=== PATIENT | female | born 1965 | race American Indian/Alaskan Native ===

== ENCOUNTER 2017-01-12 17:45 | Emergency (ER) | payer BC ==
[2017-01-12 17:58] VITALS: BP 161/102
--- NOTE | 2017-01-12 20:01 | Emergency Department Report ---
ED General Adult HPI - General Chief complaint: Animal Bite Stated complaint: SPIDER BITE Time Seen by Provider: 01/12/17 19:49 Source: patient Mode of arrival: Ambulatory Limitations: No Limitations - History of Present Illness Initial comments: Patient comes into the ER today with complaints of left-sided neck pain following some sort of insect bite or sting 2 days ago. Patient never saw the insect but states that she felt something and slapped her neck. Ever since then the area has become more red and more swollen with tenderness. Patient denies any fevers, chills, vomiting, chest pain, shortness of breath. -: days(s) (2) Location: neck (left lateral) Radiation: non-radiation Quality: burning, other (stinging) Consistency: constant Improves with: none Worsens with: other (time) Associated Symptoms: denies: chest pain, cough, diaphoresis, fever/chills, headaches, loss of appetite, malaise, nausea/vomiting, seizure, shortness of breath, syncope, weakness Treatments Prior to Arrival: other (topical alcohol) - Related Data Previous Rx's Medication Instructions Recorded Last Taken Type Cephalexin [Keflex] 500 mg PO TID #30 cap 01/12/17 Unknown Rx Sulfamethoxazole/Trimethoprim 1 each PO BID #20 tablet 01/12/17 Unknown Rx [Bactrim DS TAB] traMADol [Ultram] 50 mg PO Q4HR PRN #30 tablet 01/12/17 Unknown Rx Allergies Allergy/AdvReac Type Severity Reaction Status Date / Time codeine AdvReac SYNCOPE Verified 01/12/17 17:53 ED Review of Systems ROS: Stated complaint: SPIDER BITE Other details as noted in HPI Constitutional: denies: chills, fever Eyes: denies: eye pain, eye discharge, vision change ENT: denies: ear pain, throat pain Respiratory: denies: cough, shortness of breath, wheezing Cardiovascular: denies: chest pain, palpitations Endocrine: no symptoms reported Gastrointestinal: denies: abdominal pain, nausea, diarrhea Genitourinary: denies: urgency, dysuria, discharge Musculoskeletal: denies: back pain, joint swelling, arthralgia Skin: denies: rash, lesions Neurological: denies: headache, weakness, paresthesias Psychiatric: denies: anxiety, depression Hematological/Lymphatic: denies: easy bleeding, easy bruising ED Past Medical Hx - Past Medical History Additional medical history: ALLERGIES. OBESITY - Surgical History Additional Surgical History: RIGHT KNEE SURGERY. . HYSTERECTOMY - Social History Smoking Status: Never Smoker Substance Use Type: None - Medications Home Medications: Home Medications Medication Instructions Recorded Confirmed Last Taken Type Cephalexin [Keflex] 500 mg PO TID #30 cap 01/12/17 Unknown Rx Sulfamethoxazole/Trimethoprim 1 each PO BID #20 tablet 01/12/17 Unknown Rx [Bactrim DS TAB] traMADol [Ultram] 50 mg PO Q4HR PRN #30 tablet 01/12/17 Unknown Rx ED Physical Exam - General Limitations: No Limitations General appearance: alert, in no apparent distress - Head Head exam: Present: atraumatic, normocephalic - Eye Eye exam: Present: normal appearance - ENT ENT exam: Present: mucous membranes moist - Neck Neck exam: Present: normal inspection, tenderness (left lateral tenderness at this noted around pustular red nonindurated lesion consistent with insect bite) , full ROM, lymphadenopathy (left posterior auricular lymph node swelling) - Respiratory Respiratory exam: Present: normal lung sounds bilaterally. Absent: respiratory distress - Cardiovascular Cardiovascular Exam: Present: regular rate, normal rhythm. Absent: systolic murmur, diastolic murmur, rubs, gallop - GI/Abdominal GI/Abdominal exam: Present: soft, normal bowel sounds - Extremities Exam Extremities exam: Present: normal inspection - Back Exam Back exam: Present: normal inspection - Neurological Exam Neurological exam: Present: alert, oriented X3 - Psychiatric Psychiatric exam: Present: normal affect, normal mood - Skin Skin exam: Present: warm, dry, intact, normal color. Absent: rash ED Course Vital Signs 01/12/17 17:55 Temperature 98.5 F Pulse Rate 91 H Respiratory 17 Rate Blood Pressure 161/102 O2 Sat by Pulse 98 Oximetry ED Medical Decision Making - Medical Decision Making Patient is nontoxic and hemodynamically stable. I informed patient that the lesion does not appear to need incision and drainage at this time. It does appear to be getting infected. I have some concern as to potential reaction versus infectious process going on. I will start patient on some antibiotics as well as short course of steroids. Patient is stable for discharge and is agreement with treatment plan. Critical care attestation.: If time is entered above; I have spent that time in minutes in the direct care of this critically ill patient, excluding procedure time. ED Disposition Clinical Impression: Insect bite Disposition: DISCHARGED TO HOME OR SELFCARE Is pt being admited?: No Does the pt Need Aspirin: No Condition: Good Instructions: Insect Bite or Sting (ED) Prescriptions: Cephalexin [Keflex] 500 mg PO TID #30 cap Sulfamethoxazole/Trimethoprim [Bactrim DS TAB] 1 each PO BID #20 tablet traMADol [Ultram] 50 mg PO Q4HR PRN #30 tablet PRN Reason: Pain Referrals: PRIMARY CARE, [Primary Care Provider] - 3-5 Days Time of Disposition: 20:06
== END 2017-01-12 20:11 | disposition home or self-care (01) ==
LOC: ED 17:45
DX: S10.96XA Insect bite of unspecified part of neck, initial encounter (principal); W57.XXXA Bitten or stung by nonvenomous insect and other nonvenomous arthropods, initial encounter; Y93.9 Activity, unspecified; Y92.9 Unspecified place or not applicable; Y99.9 Unspecified external cause status
CPT/HCPCS: 99282

== ENCOUNTER 2017-04-02 12:49 | Emergency (ER) | payer BC ==
[2017-04-02 13:01] VITALS: BP 148/109
[2017-04-02] MEDS ORDERED: TRIDIL DRIP 50MG/250ML 0 MG/0 ML BOTTLE ONE (13:16)
--- NOTE | 2017-04-02 13:22 | Emergency Department Report ---
ED Neck Pain/Injury HPI - General Chief Complaint: Pain General Stated Complaint: PAIN ON RT SIDE OF BODY Time Seen by Provider: 04/02/17 13:11 Mode of arrival: Ambulatory Limitations: No Limitations - History of Present Illness MD Complaint: neck pain - Related Data Previous Rx's Medication Instructions Recorded Last Taken Type Cephalexin [Keflex] 500 mg PO TID #30 cap 01/12/17 Unknown Rx Sulfamethoxazole/Trimethoprim 1 each PO BID #20 tablet 01/12/17 Unknown Rx [Bactrim DS TAB] traMADol [Ultram] 50 mg PO Q4HR PRN #30 tablet 01/12/17 Unknown Rx Allergies Allergy/AdvReac Type Severity Reaction Status Date / Time codeine AdvReac SYNCOPE Verified 01/12/17 17:53 ED Review of Systems ROS: Stated complaint: PAIN ON RT SIDE OF BODY Other details as noted in HPI ED Past Medical Hx - Past Medical History Previous Medical History?: Yes Additional medical history: ALLERGIES. OBESITY - Surgical History Past Surgical History?: Yes Additional Surgical History: RIGHT KNEE SURGERY. . HYSTERECTOMY - Social History Smoking Status: Never Smoker Substance Use Type: Non Opiate Pain - Medications Home Medications: Home Medications Medication Instructions Recorded Confirmed Last Taken Type Cephalexin [Keflex] 500 mg PO TID #30 cap 01/12/17 Unknown Rx Sulfamethoxazole/Trimethoprim 1 each PO BID #20 tablet 01/12/17 Unknown Rx [Bactrim DS TAB] traMADol [Ultram] 50 mg PO Q4HR PRN #30 tablet 01/12/17 Unknown Rx ED Physical Exam - General Limitations: No Limitations ED Course Vital Signs 04/02/17 12:58 Temperature 98.8 F Pulse Rate 85 Respiratory 20 Rate Blood Pressure 148/109 O2 Sat by Pulse 96 Oximetry Critical care attestation.: If time is entered above; I have spent that time in minutes in the direct care of this critically ill patient, excluding procedure time. ED Disposition Condition: Stable
[2017-04-02] MEDS ORDERED: TYLENOL PO ONE (14:00)
[2017-04-02 14:02] LABS: Eosinophils % (Auto) 2.3 % (0.0-4.3); Hematocrit 40.2 % (30.3-42.9); Hemoglobin 13.3 gm/dl (10.1-14.3); Mean Corpuscular HGB Conc 33 % (30-34); Mean Corpuscular Hemoglobin 30 pg (28-32); Mean Corpuscular Volume 90 fl (79-97); Platelet Count 232 K/mm3 (140-440); Red Blood Count 4.45 M/mm3 (3.65-5.03); Red Cell Distribution Width 14.4 % (13.2-15.2); White Blood Count 8.5 K/mm3 (4.5-11.0)
[2017-04-02 14:21] LABS: Anion Gap 13 mmol/L; BUN/Creatinine Ratio 13.75; Blood Urea Nitrogen 11 mg/dL (7-17); Calcium 8.1 mg/dL (8.4-10.2); Carbon Dioxide 26 mmol/L (22-30); Chloride 106.5 mmol/L (98-107); Creatine Kinase 97 units/L (30-135); Glucose 106 mg/dL (65-100); Potassium 3.8 mmol/L (3.6-5.0); Sodium 142 mmol/L (137-145)
[2017-04-02] MEDS ORDERED: TORADOL IM ONE (14:55)
--- NOTE | 2017-04-02 15:04 | Cat Scan Report ---
FINAL REPORT EXAM: CT HEAD/BRAIN WO CON HISTORY: RUE paraesthesias TECHNIQUE: Noncontrast CT axial images of the brain. PRIORS: None. FINDINGS: No parenchymal mass, mass effect, hemorrhage, midline shift or hydrocephalus. No evidence of acute cortical infarct. No abnormal, extra-axial fluid or air collection. Osseous calvarium grossly intact. IMPRESSION: 1. No acute intracranial findings.
--- NOTE | 2017-04-02 15:26 | Cat Scan Report ---
FINAL REPORT EXAM: CT CERVICAL SPINE WO CONTRAST HISTORY: neck pain rad sravani right arm TECHNIQUE: Spiral CT scanning of the cervical spine, with axial images and multiplanar reformations. PRIORS: None. FINDINGS: Patient body habitus limits examination somewhat. Mild dextroconvex curvature of cervical spine. Variable neural foraminal encroachment particularly along the right side and most pronounced in the C4-5 and C6-7 levels, may be due in part to congenitally shortened pedicular distance. No acute compression deformity or gross malalignment of cervical vertebral bodies. No acute fracture identified. No significant, osseous central spinal canal encroachment. Disc spaces maintained. Paraspinal soft tissues grossly unremarkable. IMPRESSION: 1. Variable neural foraminal encroachment, right greater than left, may be congenital or anatomic. Please note that MRI is a far more sensitive modality in the evaluation of degenerative disc disease and followup may be warranted. 2. No other acute findings.
--- NOTE | 2017-04-04 11:07 | Vascular Lab Report ---
LOWER EXTREMITY VENOUS DUPLEX: REASON FOR EXAM: Swelling of the lower extremities. COMMENTS ON THE RIGHT: All veins visualized are freely compressible without evidence of internal echogenicity. Flow is spontaneous and phasic throughout. COMMENTS ON THE LEFT: All veins visualized are freely compressible without evidence of internal echogenicity. Flow is spontaneous and phasic throughout. IMPRESSION: No evidence of acute or chronic deep venous thrombosis in either lower extremity.
== END 2017-04-02 16:15 | disposition home or self-care (01) ==
LOC: ED 12:49
DX: M79.1 Myalgia (principal); M54.2 Cervicalgia; M79.89 Other specified soft tissue disorders
CPT/HCPCS: 36415; 70450; 70490; 80048; 82550; 85025; 93970; 96372; 99284; J1885

== ENCOUNTER 2020-07-04 19:17 | Emergency (ER) | payer SELFPAY ==
[2020-07-04 20:04] LABS: Basophils # (Auto) 0.1 K/mm3 (0.0-0.1); Basophils % (Auto) 0.8 % (0.0-1.8); Eosinophils # (Auto) 0.2 K/mm3 (0.0-0.4); Eosinophils % (Auto) 2.4 % (0.0-4.3); Hematocrit 40.7 % (30.3-42.9); Hemoglobin 13.6 gm/dl (10.1-14.3); Lymphocytes # (Auto) 2.7 K/mm3 (1.2-5.4); Lymphocytes % (Auto) 28.3 % (13.4-35.0); Mean Corpuscular HGB Conc 34 % (30-34); Mean Corpuscular Volume 91 fl (79-97); Monocytes # (Auto) 0.8 K/mm3 (0.0-0.8); Platelet Count 271 K/mm3 (140-440); Red Blood Count 4.45 M/mm3 (3.65-5.03); Red Cell Distribution Width 14.8 % (13.2-15.2)
[2020-07-04 20:25] LABS: BUN/Creatinine Ratio 7; Blood Urea Nitrogen 7 mg/dL (7-17); Calcium 8.6 mg/dL (8.4-10.2); Hemolysis Index 9
--- NOTE | 2020-07-04 22:34 | Emergency Department Report ---
HPI - General Chief Complaint: Extremity Injury, Lower Time Seen by Provider: 07/04/20 22:21 - HPI HPI: This is a 55-year-old female presents to the emergency department with complaint of a 2-day history of bilateral lower extremity pain and swelling. The pain is mostly from the back of the knee down through her calf and the swelling goes down through the feet. She denies any skin color change, rash, lesions, itching, bleeding, weeping, drainage. She denies any fever, chest pain, shortness of breath, back pain. She denies any past medical history. She has a primary care physician, but cannot currently remember the name. She tried some ibuprofen for her symptoms without any relief. She denies any recent travel, immobility, recent surgery. 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 ED Past Medical Hx - Past Medical History Previous Medical History?: Yes Additional medical history: ALLERGIES. OBESITY - Surgical History Past Surgical History?: Yes Additional Surgical History: RIGHT KNEE SURGERY. . HYSTERECTOMY - Social History Smoking Status: Never Smoker Substance Use Type: None - Medications Home Medications: Home Medications Medication Instructions Recorded Confirmed Last Taken Type Sulfamethoxazole/Trimethoprim 1 each PO BID #20 tablet 01/12/17 Unknown Rx [Bactrim DS TAB] cephALEXin [Keflex] 500 mg PO TID #30 cap 01/12/17 Unknown Rx traMADoL [Ultram] 50 mg PO Q4HR PRN #30 tablet 01/12/17 Unknown Rx Cyclobenzaprine [Flexeril] 10 mg PO TID PRN #15 tablet 04/02/17 Unknown Rx Naproxen [Naprosyn TAB] 500 mg PO BID PRN #30 tablet 04/02/17 Unknown Rx ED Review of Systems ROS: Stated complaint: swollen legs Other details as noted in HPI Comment: All other systems reviewed and negative Constitutional: denies: chills, fever Eyes: denies: eye pain, vision change ENT: denies: ear pain, throat pain Respiratory: denies: cough, shortness of breath Cardiovascular: edema (b/l legs). denies: chest pain, palpitations Gastrointestinal: denies: abdominal pain, vomiting Genitourinary: denies: dysuria, discharge Musculoskeletal: myalgia. denies: back pain Skin: denies: rash, lesions Neurological: denies: numbness, paresthesias Physical Exam - Physical Exam Vital Signs: Vital Signs 07/04/20 19:29 Temperature 99.5 F Pulse Rate 78 Respiratory 20 Rate Blood Pressure 151/95 O2 Sat by Pulse 98 Oximetry Physical Exam: GENERAL: The patient is well-developed well-nourished. HENT: Normocephalic. Atraumatic. Patient has moist mucous membranes. EYES: Extraocular motions are intact. NECK: Supple. Trachea is midline. CHEST/LUNGS: Clear to auscultation. There is no respiratory distress noted. HEART/CARDIOVASCULAR: Regular. There is no tachycardia. ABDOMEN: Abdomen is soft, nontender. Patient has normal bowel sounds. Morbidly obese habitus. SKIN: 1-2+ pitting edema to the bilateral lower extremities from the knees distally to the ankles. No erythema. No bleeding, weeping, drainage. No rash or lesions. NEURO: The patient is awake, alert, and oriented. The patient is cooperative. The patient has no focal neurologic deficits. Normal speech. MUSCULOSKELETAL: There is some tenderness to palpation to the bilateral lower extremities from the knees distally. There is no limitation range of motion. Palpable distal pulses. Capillary refill less than 2 seconds. ED Course Vital Signs 07/04/20 19:29 Temperature 99.5 F Pulse Rate 78 Respiratory 20 Rate Blood Pressure 151/95 O2 Sat by Pulse 98 Oximetry - Reevaluation(s) Reevaluation #1: 07/05/20 01:09 Lab Results 07/04/20 07/04/20 07/04/20 Range/Units 19:40 19:40 19:40 WBC 9.4 (4.5-11.0) K/mm3 RBC 4.45 (3.65-5.03) M/mm3 Hgb 13.6 (10.1-14.3) gm/dl Hct 40.7 (30.3-42.9) % MCV 91 (79-97) fl MCH 31 (28-32) pg MCHC 34 (30-34) % RDW 14.8 (13.2-15.2) % Plt Count 271 (140-440) K/mm3 Lymph % (Auto) 28.3 (13.4-35.0) % [place] % (Auto) 9.0 H (0.0-7.3) % Eos % (Auto) 2.4 (0.0-4.3) % Baso % (Auto) 0.8 (0.0-1.8) % Lymph # (Auto) 2.7 (1.2-5.4) K/mm3 [place] # (Auto) 0.8 (0.0-0.8) K/mm3 Eos # (Auto) 0.2 (0.0-0.4) K/mm3 Baso # (Auto) 0.1 (0.0-0.1) K/mm3 Seg Neutrophils % 59.5 (40.0-70.0) % Seg Neutrophils # 5.6 (1.8-7.7) K/mm3 Sodium 143 (137-145) mmol/L Potassium 3.6 (3.6-5.0) mmol/L Chloride 109.7 H (98-107) mmol/L Carbon Dioxide 24 (22-30) mmol/L Anion Gap 13 mmol/L BUN 7 (7-17) mg/dL Creatinine 1.0 (0.6-1.2) mg/dL Estimated GFR > 60 ml/min BUN/Creatinine Ratio 7 % Glucose 111 H (65-100) mg/dL Calcium 8.6 (8.4-10.2) mg/dL NT-Pro-B Natriuret Pep 29.82 (0-900) pg/mL Reevaluation #2: 07/05/20 01:09 Vital Signs 07/04/20 19:29 Temperature 99.5 F Pulse Rate 78 Respiratory 20 Rate Blood Pressure 151/95 O2 Sat by Pulse 98 Oximetry ED Medical Decision Making - Lab Data Result diagrams: 07/04/20 19:40 07/04/20 19:40 - Radiology Data Radiology results: report reviewed DUPLEX DOPPLER LOWER EXTREMITY VEINS, BILATERAL INDICATION: Bilateral lower extremity swelling and pain. TECHNIQUE: Duplex doppler imaging was performed through the veins of both lower extremities using venous compression and other maneuvers. COMPARISON: None available. FINDINGS: Right Common Femoral vein: Negative. Right Superficial Femoral vein: Negative. Right Popliteal vein: Negative. Right Calf veins: Negative. Left Common Femoral vein: Negative. Left Superficial Femoral vein: Negative. Left Popliteal vein: Negative. Left Calf veins: Negative. Additional findings: Soft tissue edema is noted throughout the lower extremities bilaterally. IMPRESSION: 1. No sonographic evidence for DVT in either lower extremity. - Medical Decision Making This patient presents with a 2-day history of bilateral lower extremity pain and swelling. No chest pain or shortness of breath. On examination she does have reproducible tenderness to palpation from the knees distally. She also has 1-2+ pitting edema to the bilateral tib-fib and nonpitting edema to the feet. Bilateral lower extremity venous Doppler ultrasound was completed and did not show any sonographic evidence for DVT. Patient's labs were unremarkable including CBC, metabolic panel and proBNP. The patient does not have any erythema concerning for cellulitis. There is no fluctuance concerning for abscess. There is no other rash or lesions seen. She has full range of motion. She has neurovascularly intact. I planned to give the patient a dose of Lasix to start some diuresis, but the patient did not want this medication/treatment. She will use compression stockings/socks and will keep her legs elevated when she is resting at home. She has been instructed to follow-up with primary care and return to the ER with any worsening of her symptoms or with any acute distress. Vital signs have been reassuring throughout her ED course including being afebrile. Critical Care Time: No Critical care attestation.: If time is entered above; I have spent that time in minutes in the direct care of this critically ill patient, excluding procedure time. ED Disposition Clinical Impression: Bilateral lower extremity edema, Bilateral lower extremity pain Disposition: - TO HOME OR SELFCARE Is pt being admited?: No Condition: Stable Instructions: Peripheral Edema Additional Instructions: Please follow-up with your primary care physician in the next few days. When you are at home resting, keep your legs elevated. You can try compression stockings/socks. Return to the emergency department with any worsening of your symptoms, new or concerning symptoms not addressed during this current emergency department visit, or with any acute distress. Referrals: PRIMARY CARE [Primary Care Provider] - 2-3 Days Time of Disposition: 00:27
--- NOTE | 2020-07-04 23:51 | Vascular Lab Report ---
DUPLEX DOPPLER LOWER EXTREMITY VEINS, BILATERAL INDICATION: Bilateral lower extremity swelling and pain. TECHNIQUE: Duplex doppler imaging was performed through the veins of both lower extremities using venous salina rodo and other maneuvers. COMPARISON: None available. FINDINGS: Right Common Femoral vein: Negative. Right Superficial Femoral vein: Negative. Right Popliteal vein: Negative. Right Calf veins: Negative. Left Common Femoral vein: Negative. Left Superficial Femoral vein: Negative. Left Popliteal vein: Negative. Left Calf veins: Negative. Additional findings: Soft tissue edema is noted throughout the lower extremities bilaterally. IMPRESSION: 1. No sonographic evidence for DVT in either lower extremity. Signer Name: Sharon Escobedo MD Signed: 07/04/2020 11:47 PM Workstation Name: [id number]
[2020-07-05] MEDS ORDERED: FUROSEMIDE 20 MG TAB PO ONE
[2020-07-05 01:27] VITALS: BP 150/92
== END 2020-07-05 00:37 | disposition home or self-care (01) ==
LOC: ED 19:17
DX: M79.604 Pain in right leg (principal); M79.605 Pain in left leg; R60.0 Localized edema; E66.9 Obesity, unspecified; Z68.44 Body mass index [BMI] 60.0-69.9, adult; Z90.710 Acquired absence of both cervix and uterus; Z79.899 Other long term (current) drug therapy; Z88.6 Allergy status to analgesic agent
CPT/HCPCS: 36415; 80048; 83880; 85025; 93970

== ENCOUNTER 2020-11-19 17:02 | Emergency (ER) | payer OTHER ==
[2020-11-19 17:41] VITALS: BP 138/105
--- NOTE | 2020-11-19 17:46 | Emergency Department Report ---
Upper Extremity - HPI Chief Complaint: Extremity Injury, Upper Stated Complaint: RT ARM PAIN Upper Extremity: Right Arm, Right Forearm Occurred When: 3 Days Mechanism: Unsure Severity: severe Symptoms: Yes Pain with Movement, No Deformity, No Limited Range of Movement, No Numbness, No Swelling, No Bruising/Ecchymosis, No Laceration or Abrasion Other History: 55-year-old morbid obese -[place] female presents to the emergency room for right forearm and arm pain x3 days. Patient unsure of any injury. 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 She currently does not have a primary care provider. She reports she is taking Tylenol [id number] for pain management. She reports that has not helped. She denies any trauma. Denies anything making the pain worse or better. Denies any limitations. ED Review of Systems ROS: Stated complaint: RT ARM PAIN Other details as noted in HPI Comment: All other systems reviewed and negative ED Past Medical Hx - Past Medical History Additional medical history: ALLERGIES. OBESITY - Surgical History Additional Surgical History: RIGHT KNEE SURGERY. . HYSTERECTOMY - Social History Smoking Status: Never Smoker Substance Use Type: None - Medications Home Medications: Home Medications Medication Instructions Recorded Confirmed Last Taken Type Sulfamethoxazole/Trimethoprim 1 each PO BID #20 tablet 01/12/17 Unknown Rx [Bactrim DS TAB] cephALEXin [Keflex] 500 mg PO TID #30 cap 01/12/17 Unknown Rx traMADoL [Ultram] 50 mg PO Q4HR PRN #30 tablet 01/12/17 Unknown Rx Cyclobenzaprine [Flexeril] 10 mg PO TID PRN #15 tablet 04/02/17 Unknown Rx Naproxen [Naprosyn TAB] 500 mg PO BID PRN #30 tablet 04/02/17 Unknown Rx Diclofenac Sodium [Voltaren 50 gm TP BID #50 gel..gram. 11/19/20 Unknown Rx Arthritis Pain] Naproxen [Naprosyn] 500 mg PO BID PRN #20 tablet 11/19/20 Unknown Rx Upper Extremity Exam - Exam General: Vital signs noted. No distress. Alert and acting appropriately. Shoulder Exam: Yes Normal Range of Motion in Shoulder, No Shoulder Tenderness, No Clavicle Tenderness, No Shoulder Deformity, No AC Joint Tenderness Elbow: Yes Normal Range of Motion in Elbow, No Elbow Tenderness, No Elbow Deformity Forearm: Yes Forearm Tenderness, No Forearm Deformity, No Pain with Pronation, No Pain with Supination Wrist: Yes Normal ROM in Wrist, No Wrist Tenderness, No Wrist Deformity, No Snuffbox Tenderness, No Pain with Axial Thumb Compression Hand: Yes Normal ROM in Digit(s), No Hand Tenderness, No Hand Deformity, No Digit Tenderness, No Digit(s) Deformity, No Tendon Dysfunction ED Course Vital Signs 11/19/20 17:29 Temperature 98.3 F Pulse Rate 79 Respiratory 18 Rate Blood Pressure 138/105 O2 Sat by Pulse 100 Oximetry ED Medical Decision Making - Medical Decision Making 55-year-old morbid obese -[place] female presents to the emergency room for right forearm and arm pain x3 days. Patient unsure of any injury. 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 She currently does not have a primary care provider. She reports she is taking Tylenol [id number] for pain management. She reports that has not helped. She denies any trauma. Denies anything making the pain worse or better. Denies any limitations. Patient's exam does not require any imaging. I recommend naproxen and Voltaren gel. Patient is to follow-up with her primary care provider. Critical care attestation.: If time is entered above; I have spent that time in minutes in the direct care of this critically ill patient, excluding procedure time. ED Disposition Clinical Impression: Right arm pain Disposition: DC-01 TO HOME OR SELFCARE Is pt being admited?: No Does the pt Need Aspirin: No Condition: Stable Instructions: Pain Without a Known Cause Additional Instructions: Recommend to try naproxen and Voltaren gel. Follow-up with a primary care provider. Prescriptions: Naproxen [Naprosyn] 500 mg PO BID PRN #20 tablet PRN Reason: Pain , Severe (7-10) Diclofenac Sodium [Voltaren Arthritis Pain] 50 gm TP BID #50 gel..gram. Referrals: PUSHPA SANTIAGO MD [Staff Physician] - 3-5 Days Forms: Work/School Release Form(ED)
== END 2020-11-19 18:35 | disposition home or self-care (01) ==
LOC: ED 17:02
DX: M79.601 Pain in right arm (principal); Z90.710 Acquired absence of both cervix and uterus; Z98.890 Other specified postprocedural states; Z79.899 Other long term (current) drug therapy; Z88.8 Allergy status to other drugs, medicaments and biological substances
CPT/HCPCS: 99281

== ENCOUNTER 2020-12-09 19:05 | Emergency (ER) | payer OTHER ==
[2020-12-09 21:26] VITALS: BP 145/85
--- NOTE | 2020-12-09 22:48 | Event Note ---
ED Screening Note Date of service: 12/09/20 Time: 22:47 ED Screening Note: 55-year-old -[place] female presents to the emergency room for right ankle pain and swelling that happened yesterday when she stepped down on her slippers and her foot went to the side. Patient states since then she is having pain with ambulating and swelling. Patient reports she took ibuprofen right before leaving her home. This initial assessment/diagnostic orders/clinical plan/treatment(s) is/are subject to change based on patients health status, clinical progression and re- assessment by fellow clinical providers in the ED. Further treatment and workup at subsequent clinical providers discretion. Patient/guardian urged not to elope from the ED as their condition may be serious if not clinically assessed and managed. Initial orders include:
[2020-12-09] MEDS ORDERED: KETOROLAC 30 MG/1 ML INJ IM ONE (22:50)
--- NOTE | 2020-12-10 01:02 | Emergency Department Report ---
Upper Extremity - HPI Chief Complaint: Extremity Injury, Upper Stated Complaint: arm pain Time Seen by Provider: 12/10/20 00:42 Upper Extremity: Right Shoulder Occurred When: >5 Days Mechanism: Unsure Symptoms: No Pain with Movement, No Deformity, No Limited Range of Movement, No Numbness, No Weakness, No Swelling, No Bruising/Ecchymosis, No Laceration or Abrasion Other History: Patient is a 55-year-old female that presents emergency room with complaints of right shoulder pain. Patient was seen here already for this pain. Patient has not seen an orthopedist or any physician since her last visit here. Patient states she is already taking her medication and has run out. Patient denies trauma. Patient denies fall. Patient denies lifting anything or doing any new tasks. 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 Patient denies recent travel. Patient denies recent international travel. Patient denies exposure to the novel coronavirus. Patient denies sick contacts. Patient denies fever and chills. Patient denies cough. Patient denies diarrhea. Patient denies coming in contact with anybody with symptoms of the novel coronavirus. ED Review of Systems ROS: Stated complaint: arm pain Other details as noted in HPI Constitutional: denies: chills, fever Eyes: denies: eye pain, eye discharge, vision change ENT: denies: ear pain, throat pain Respiratory: denies: cough, shortness of breath, wheezing Cardiovascular: denies: chest pain, palpitations Endocrine: no symptoms reported Gastrointestinal: denies: abdominal pain, nausea, diarrhea Genitourinary: denies: urgency, dysuria, discharge Musculoskeletal: denies: back pain, joint swelling, arthralgia Skin: denies: rash, lesions Neurological: denies: headache, weakness, paresthesias Psychiatric: denies: anxiety, depression Hematological/Lymphatic: denies: easy bleeding, easy bruising ED Past Medical Hx - Past Medical History Previous Medical History?: No Additional medical history: ALLERGIES. OBESITY - Surgical History Past Surgical History?: Yes Additional Surgical History: RIGHT KNEE SURGERY. x1. HYSTERECTOMY - Family History Family history: no significant - Social History Smoking Status: Never Smoker Substance Use Type: None - Medications Home Medications: Home Medications Medication Instructions Recorded Confirmed Last Taken Type Sulfamethoxazole/Trimethoprim 1 each PO BID #20 tablet 01/12/17 Unknown Rx [Bactrim DS TAB] cephALEXin [Keflex] 500 mg PO TID #30 cap 01/12/17 Unknown Rx Cyclobenzaprine [Flexeril] 10 mg PO TID PRN #15 tablet 04/02/17 Unknown Rx Naproxen [Naprosyn TAB] 500 mg PO BID PRN #30 tablet 04/02/17 Unknown Rx Diclofenac Sodium [Voltaren 50 gm TP BID #50 gel..gram. 11/19/20 Unknown Rx Arthritis Pain] Naproxen [Naprosyn] 500 mg PO BID PRN #20 tablet 11/19/20 Unknown Rx traMADoL [Ultram 50 MG tab] 50 mg PO Q4HR PRN #20 tablet 12/10/20 Unknown Rx Upper Extremity Exam - Exam General: Vital signs noted. No distress. Alert and acting appropriately. Head and Torso: No HEENT Abnormality, No Neck Tenderness, No Chest/Lungs Abnormality, No Abdominal Tenderness, No Back Tenderness Shoulder Exam: Yes Normal Range of Motion in Shoulder, No Shoulder Tenderness, No Clavicle Tenderness, No Shoulder Deformity, No AC Joint Tenderness Arm Exam: No Arm/Humerus Tenderness, No Arm Deformity Elbow: No Elbow Tenderness, No Normal Range of Motion in Elbow, No Elbow Deformity Forearm: No Forearm Tenderness, No Forearm Deformity, No Pain with Pronation, No Pain with Supination Wrist: Yes Normal ROM in Wrist, No Wrist Tenderness, No Wrist Deformity, No Snuf fbox Tenderness, No Pain with Axial Thumb Compression Hand: Yes Normal ROM in Digit(s), No Hand Tenderness, No Hand Deformity, No Digit Tenderness, No Digit(s) Deformity, No Tendon Dysfunction CMS Exam: No Broken Skin, No Normal Distal Pulses, No Normal Capillary Refill, No Normal Distal Sensation ED Course Vital Signs 12/09/20 21:24 Temperature 98.1 F Pulse Rate 81 Respiratory 18 Rate Blood Pressure 145/85 O2 Sat by Pulse 98 Oximetry ED Medical Decision Making - Medical Decision Making Patient is a 55-year-old female that presents emergency room with complaints of right shoulder pain. Patient never had any trauma. Patient's clinical findings are consistent with a right shoulder sprain or strain. Patient will need to see an orthopedist. Patient given orthopedic referral. Patient was given pain medications so that we can treat her pain until she sees the orthopedist. Patient is stable for discharge. Patient discharged home. - Differential Diagnosis Right shoulder sprain, right shoulder strain, arthritis, Critical care attestation.: If time is entered above; I have spent that time in minutes in the direct care of this critically ill patient, excluding procedure time. ED Disposition Clinical Impression: Sprain of shoulder, right Qualifiers: Encounter type: initial encounter Shoulder sprain type: unspecified sprain Qualified Code(s): S43.401A - Unspecified sprain of right shoulder joint, initial encounter Disposition: TO HOME OR SELFCARE Is pt being admited?: No Does the pt Need Aspirin: No Condition: Stable Instructions: Shoulder Sprain, Elastic Bandage and RICE Therapy, How to Use Cold Therapy, [id number] Additional Instructions: Patient to follow-up with primary care in 2 to 3 days. Patient to follow-up with orthopedist in 2 to 3 days. Patient to rest. Patient to increase water. Patient to avoid strenuous exercise or heavy lifting until cleared by orthope dist. Patient to take Tylenol or ibuprofen as needed for pain. Patient to take meds as directed. Patient to return to the ER if condition worsens, changes or new symptoms arise. Prescriptions: traMADoL [Ultram 50 MG tab] 50 mg PO Q4HR PRN #20 tablet PRN Reason: Pain Referrals: PRIMARY CARE, [Primary Care Provider] - 2-3 Days ANNA GLYNN MD [Staff Physician] - 2-3 Days Time of Disposition: :03
== END 2020-12-10 01:40 | disposition home or self-care (01) ==
LOC: ED 19:05
DX: S43.401A Unspecified sprain of right shoulder joint, initial encounter (principal); E66.9 Obesity, unspecified; Z88.6 Allergy status to analgesic agent; Z98.890 Other specified postprocedural states; Z90.710 Acquired absence of both cervix and uterus; Z68.33 Body mass index [BMI] 33.0-33.9, adult; Z79.899 Other long term (current) drug therapy; X58.XXXA Exposure to other specified factors, initial encounter; Y93.89 Activity, other specified; Y92.89 Other specified places as the place of occurrence of the external cause; Y99.8 Other external cause status
CPT/HCPCS: 99282